=== PATIENT | female | born 1985 | race American Indian/Alaskan Native ===

== ENCOUNTER 2016-10-12 22:16 | Emergency (ER) | payer SELFPAY ==
[2016-10-12 22:37] VITALS: BP 110/75
[2016-10-12 23:42] LABS: Hematocrit 36.2 % (30.3-42.9); Hemoglobin 11.8 gm/dl (10.1-14.3); Mean Corpuscular HGB Conc 33 % (30-34); Mean Corpuscular Hemoglobin 28 pg (28-32); Mean Corpuscular Volume 86 fl (79-97); Platelet Count 243 K/mm3 (140-440); Red Blood Count 4.23 M/mm3 (3.65-5.03); Red Cell Distribution Width 14.3 % (13.2-15.2); White Blood Count 10.5 K/mm3 (4.5-11.0)
[2016-10-12 23:42] LABS: Bilirubin,Urine NEG (Negative); Blood,Urine NEG (Negative); Ketones,Urine NEG (Negative); Leukocyte Esterase,Urine TR (Negative); Mucus,Urine FEW /HPF; Nitrite,Urine NEG (Negative); Protein,Urine <15 mg/dL mg/dL (Negative); Urobilinogen,Urine < 2.0 mg/dL (<2.0)
[2016-10-12 23:48] LABS: Alanine Aminotransferase 15 units/L (7-56); Albumin 4.2 g/dL (3.9-5); Albumin/Globulin Ratio 1.3 %; Alkaline Phosphatase 61 units/L (35-129); Anion Gap 17 mmol/L; BUN/Creatinine Ratio 18.75; Blood Urea Nitrogen 15 mg/dL (7-17); Calcium 9.5 mg/dL (8.4-10.2); Carbon Dioxide 25 mmol/L (22-30); Chloride 101.5 mmol/L (98-107); Glucose 98 mg/dL (65-100); Lipase 35 units/L (13-60); Potassium 4.2 mmol/L (3.6-5.0); Sodium 139 mmol/L (137-145); Total Protein 7.5 g/dL (6.3-8.2)
[2016-10-13 03:40] LABS: Basophils % (Manual) 0 % (0.0-1.8); Blastocytes % (Manual) 0 %
[2016-10-13 03:41] LABS: Anisocytosis 1+; Diff Status Complete
== END 2016-10-13 04:39 | disposition left against medical advice (07) ==
LOC: ED 22:16
DX: R10.9 Unspecified abdominal pain (principal); Z53.21 Procedure and treatment not carried out due to patient leaving prior to being seen by health care provider
CPT/HCPCS: 36415; 80053; 81001; 81025; 83690; 85007; 85025; 93005; 93010

== ENCOUNTER 2017-06-24 21:29 | Emergency (ER) | payer OTHER ==
[2017-06-24 21:48] VITALS: BP 107/75
[2017-06-24] MEDS ORDERED: ASPIRIN PO ONE (21:52)
[2017-06-24 22:03] LABS: Basophils # (Auto) 0.1 K/mm3 (0.0-0.1); Basophils % (Auto) 0.8 % (0.0-1.8); Eosinophils # (Auto) 0.3 K/mm3 (0.0-0.4); Eosinophils % (Auto) 2.7 % (0.0-4.3); Hemoglobin 12.4 gm/dl (10.1-14.3); Lymphocytes # (Auto) 4.5 K/mm3 (1.2-5.4); Lymphocytes % (Auto) 43.9 % (13.4-35.0); Mean Corpuscular HGB Conc 33 % (30-34); Mean Corpuscular Hemoglobin 29 pg (28-32); Mean Corpuscular Volume 86 fl (79-97); Monocytes # (Auto) 0.7 K/mm3 (0.0-0.8); Monocytes % (Auto) 6.6 % (0.0-7.3); Platelet Count 249 K/mm3 (140-440); Red Blood Count 4.32 M/mm3 (3.65-5.03); Red Cell Distribution Width 13.6 % (13.2-15.2)
[2017-06-24 22:15] LABS: BUN/Creatinine Ratio 27; Blood Urea Nitrogen 19 mg/dL (7-17); Calcium 8.7 mg/dL (8.4-10.2); Hemolysis Index 4
[2017-06-24] MEDS ORDERED: MOTRIN PO ONE (23:12)
--- NOTE | 2017-06-24 23:18 | Emergency Department Report ---
ED Chest Pain HPI - General Chief Complaint: Chest Pain Stated Complaint: CHEST PAIN Time Seen by Provider: 06/24/17 23:05 Source: patient Mode of arrival: Ambulatory Limitations: No Limitations - History of Present Illness Initial Comments: Ms. Joyce is a healthy 32 yo female who presents with chest pain, back pain and dyspnea. Since this morning, she has intemittent sharp pain which lasts seconds. Left upper back and mid chest. No leg pain. No ocp use. no recent travel. No change with movement or inspiration. For several years has had hx of palpitations. New [employer] job started 3 weeks ago. Does require heavy lifting. MD Complaint: chest pain -: Gradual Onset: during rest Pain Location: substernal Pain Radiation: back Severity: mild Quality: sharp Consistency: intermittent Improves With: nothing Worsens With: nothing - Related Data Previous Rx's Medication Instructions Recorded Last Taken Type Ibuprofen 800 mg PO Q6H PRN #10 tablet 06/24/17 Unknown Rx Allergies Allergy/AdvReac Type Severity Reaction Status Date / Time No Known Allergies Allergy Unverified 10/12/16 22:37 Heart Score - HEART Score History: Slightly suspicious EKG: Normal Age: < 45 Risk factors: No known risk factors Troponin: < normal limit HEART Score: 0 ED Review of Systems ROS: Stated complaint: CHEST PAIN Other details as noted in HPI Comment: All other systems reviewed and negative Constitutional: denies: fever, malaise Respiratory: denies: cough Cardiovascular: chest pain. denies: palpitations ED Past Medical Hx - Past Medical History Previous Medical History?: No - Surgical History Past Surgical History?: Yes Additional Surgical History: lumpectomy - Social History Smoking Status: Never Smoker Substance Use Type: None - Medications Home Medications: Home Medications Medication Instructions Recorded Confirmed Last Taken Type Ibuprofen 800 mg PO Q6H PRN #10 tablet 06/24/17 Unknown Rx ED Physical Exam - General Limitations: No Limitations General appearance: alert, in no apparent distress - Head Head exam: Present: atraumatic, normocephalic - Eye Eye exam: Present: normal appearance - ENT ENT exam: Present: mucous membranes moist - Neck Neck exam: Present: normal inspection - Respiratory Respiratory exam: Present: normal lung sounds bilaterally. Absent: respiratory distress, wheezes, rales, rhonchi, chest wall tenderness, accessory muscle use, decreased breath sounds, prolonged expiratory (no back tenderness) - Cardiovascular Cardiovascular Exam: Present: regular rate, normal rhythm, normal heart sounds. Absent: bradycardia, tachycardia, systolic murmur, diastolic murmur, rubs, gallop - GI/Abdominal GI/Abdominal exam: Present: soft, normal bowel sounds. Absent: distended, tenderness, guarding, rebound - Extremities Exam Extremities exam: Present: normal inspection - Back Exam Back exam: Present: normal inspection - Neurological Exam Neurological exam: Present: alert, oriented X3 - Psychiatric Psychiatric exam: Present: normal affect, normal mood - Skin Skin exam: Present: warm, dry, intact, normal color. Absent: rash ED Course Vital Signs 06/24/17 21:39 Temperature 98.3 F Pulse Rate 75 Respiratory 18 Rate Blood Pressure 107/75 O2 Sat by Pulse 100 Oximetry ED Medical Decision Making - Lab Data Result diagrams: 06/24/17 21:54 06/24/17 21:54 Laboratory Results - last 24 hr 06/24/17 06/24/17 06/24/17 21:54 21:54 21:54 WBC 10.3 RBC 4.32 Hgb 12.4 Hct 37.0 MCV 86 MCH 29 MCHC 33 RDW 13.6 Plt Count 249 Lymph % (Auto) 43.9 H [place] % (Auto) 6.6 Eos % (Auto) 2.7 Baso % (Auto) 0.8 Lymph # 4.5 [place] # 0.7 Eos # 0.3 Baso # 0.1 Seg Neutrophils % 46.0 Seg Neutrophils # 4.7 Sodium 137 Potassium 4.3 Chloride 100.3 Carbon Dioxide 26 Anion Gap 15 BUN 19 H Creatinine 0.7 Estimated GFR > 60 BUN/Creatinine Ratio 27 Glucose 104 H Calcium 8.7 Troponin T < 0.010 HCG, Qual Negative Vital Signs - 24 hr 06/24/17 21:39 Temperature 98.3 F Pulse Rate 75 Respiratory 18 Rate Blood Pressure 107/75 O2 Sat by Pulse 100 Oximetry - EKG Data When compared to previous EKG there are: no significant change 06/24/17 23:15 EKG obtained at 2139 Normal sinus rhythm rate of 70 normal axis normal intervals no ST-T signs of ischemia no signs of pericarditis EKG unchanged from 10/12/2016 - Medical Decision Making Ms. Joyce is a healthy 32-year-old female who presents with episodic chest pain and back pain. She is PERC negative. No indication of pneumothorax from clinical history and exam. No evidence of pericarditis or ACS. Patient may be experiencing pain from PVCs or muscloskeletal pain. With history of palpitations over the past several years, echocardiogram is warranted to rule out valvular disease such as mitral valve prolapse. Once she obtains health insurance with new job she will follow-up with an outpatient physician. I have prescribed ibuprofen. Critical care attestation.: If time is entered above; I have spent that time in minutes in the direct care of this critically ill patient, excluding procedure time. ED Disposition Clinical Impression: Chest pain Disposition: DC-01 TO HOME OR SELFCARE Is pt being admited?: No Does the pt Need Aspirin: No Condition: Stable Instructions: Chest Pain (ED) Prescriptions: Ibuprofen 800 mg PO Q6H PRN #10 tablet PRN Reason: Pain Time of Disposition: 23:19
== END 2017-06-24 23:40 | disposition home or self-care (01) ==
LOC: ED 21:29
DX: R07.9 Chest pain, unspecified (principal); R00.2 Palpitations
CPT/HCPCS: 36415; 80048; 84484; 84703; 85025; 93005; 93010; 99284